=== PATIENT | female | born 1985 | race Caucasian/White ===

== ENCOUNTER 2019-08-22 14:04 | Emergency (ER) | payer SELFPAY ==
[2019-08-22 14:07] VITALS: BP 145/79; PULSE 79; RESP 18; TEMP 37; O2SAT 100
--- NOTE | 2019-08-22 14:19 | XR_ITS ---
WS: [id number] LEFT FOOT: 3 VIEW(S) TECHNIQUE: AP, oblique and lateral. HISTORY: injury COMPARISON: None available. No acute fracture or dislocation. Normal tarsal/metatarsal alignment. No soft tissue abnormality or bone destruction. XR/XR foot LT min 3V* [id number] IMPRESSION: Normal LEFT foot.
--- NOTE | 2019-08-22 14:19 | XR_ITS ---
WS: [id number] LEFT ANKLE: 3 VIEW(S) TECHNIQUE: AP, oblique(s) and lateral. HISTORY: injury COMPARISON: None available. Normal anatomic alignment with no fracture or dislocation. No joint effusion or widening of the ankle mortise. No significant degenerative changes at the joint spaces. Moderate soft tissue edema laterally. XR/XR ankle LT min 3V* [id number] IMPRESSION: Moderate soft tissue edema over the lateral ankle.
--- NOTE | 2019-08-22 14:21 | W.ED.LOWEXIN ---
HPI - Extremity Injury (Lower) General: Chief Complaint: Extremity Injury, Lower Stated Complaint: left ankle pain/injury Time Seen by Provider: 08/22/19 14:08 Source: patient Mode of arrival: ambulatory Limitations: no limitations History of Present Illness: HPI Narrative: Patient is a nice 33-year-old female who presents to ED today for evaluation of a left foot/ankle injury. Patient states she was going down a flight of stairs when she stepped on a stair wrong and inverted her foot. She has not been able to ambulate on the extremity since due to discomfort. MD complaint: ankle injury and foot injury Onset (ago): hour(s) Injury: Left: ankle and foot Type of Injury: inversion Place: home Severity: moderate Relieving factors: immobilization Exacerbating factors: weight bearing, movement and palpation Context: other (twisting) Associated symptoms: Reports inability to bear weight Other symptoms: none Review of Systems Musc: Reports: joint pain and joint swelling PFSH ED PFSH: Social History Smoking and tobacco status: current every day smoker Physical Exam Extremity: OTHER: tenderness and swelling over L lateral mallelous; tenderness throughout L lateral foot; NV intact Neuro: COMMON NORMALS: no sensory deficits noted Skin: COMMON NORMALS: no rashes or lesions noted GENERAL SKIN EXAM: no rashes or lesions noted Course Vital Signs: Vital signs: Vital Signs Temperature 98.6 F 08/22/19 14:07 Pulse Rate 79 08/22/19 14:07 Respiratory Rate 18 08/22/19 14:07 Blood Pressure 145/79 08/22/19 14:07 Pulse Oximetry 100 08/22/19 14:07 MDM - Extremity Injury (Lower) Imaging Data^: L ankle XR: Radiologist's impression: [address] [address] XRay Report Signed Patient: Patricia Winchester Unit #: [id number] : 1985 Age/Sex: 33 / F ADM Date: 08/22/19 Loc: ER Room/Bed: Attending Dr: Ordering Provider/Ordering MD: Shirley Haskins Date of Service: 08/22/19 Procedure(s): XR ankle LT min 3V* 29630 Accession Number(s): [id number] Report Number: [id number] WS: [id number] LEFT ANKLE: 3 VIEW(S) TECHNIQUE: AP, oblique(s) and lateral. HISTORY: injury COMPARISON: None available. Normal anatomic alignment with no fracture or dislocation. No joint effusion or widening of the ankle mortise. No significant degenerative changes at the joint spaces. Moderate soft tissue edema laterally. XR/XR ankle LT min 3V* [id number] IMPRESSION: Moderate soft tissue edema over the lateral ankle. Dictated By: Genevieve Huber DO Signed By: Genevieve Huber DO Signed Date/Time: 08/22/19 143 DD/ 1433 L foot XR: Radiologist's impression: [address] [address] XRay Report Signed Patient: Patricia Winchester Unit #: [id number] : 1985 Age/Sex: 33 / F ADM Date: 08/22/19 Loc: ER Room/Bed: Attending Dr: Ordering Provider/Ordering MD: Shirley Haskins Date of Service: 08/22/19 Procedure(s): XR foot LT min 3V* 32340 Accession Number(s): [id number] Report Number: [id number] WS: [id number] LEFT FOOT: 3 VIEW(S) TECHNIQUE: AP, oblique and lateral. HISTORY: injury COMPARISON: None available. No acute fracture or dislocation. Normal tarsal/metatarsal alignment. No soft tissue abnormality or bone destruction. XR/XR foot LT min 3V* [id number] IMPRESSION: Normal LEFT foot. Dictated By: Genevieve Huber DO Signed By: Genevieve Huber DO Signed Date/Time: 08/22/19 1435 DD/ 1434 Discharge Plan Discharge Patient Disposition: Home, Self-Care Clinical Impression: Inversion sprain of left ankle Qualifiers: Encounter type: initial encounter Qualified Code(s): S93.402A - Sprain of unspecified ligament of left ankle, initial encounter Condition: Stable Discharge Orders: Discharge Order (Routine); Ordered 08/22/19 Ordered By: Shirley Haskins Referrals: Henry Mon MD [Primary Care Provider] - Patient Instructions: Ankle Sprain (ED), RICE Therapy (ED) Activity Restrictions/Additional Instructions: Follow up with primary care in 1-2 weeks for continued pain. Coding Level of Care Code ED Private Investigator Surveillance for Joanne Corcoran
[2019-08-22 15:22] VITALS: BP 132/88; PULSE 77; RESP 16; O2SAT 100
== END 2019-08-22 15:24 | disposition home or self-care (01) ==
LOC: ER 16:08
PROVIDERS: Emergency Provider Physician Assistant; Family Provider Family Medicine; PCP Family Medicine
DX: S93.492A Sprain of other ligament of left ankle, initial encounter (principal); X50.1XXA Overexertion from prolonged static or awkward postures, initial encounter; F17.210 Nicotine dependence, cigarettes, uncomplicated
CPT/HCPCS: 12345; 73610; 73630; 99282; 99283; E0114

== ENCOUNTER 2020-11-21 07:29 | Emergency (ER) | payer OTHER, SELFPAY ==
--- NOTE | 2020-11-21 07:41 | XR_ITS ---
WS: [id number] Portable AP upright chest, 11/21/2020 Clinical Data: dyspnea/cough Comparison: PA and lateral chest, 11/20/2013. Findings: No nodules, masses or effusions are seen. The heart is normal. The pulmonary vascularity is not increased. No pneumonia or pneumothorax is seen. XR/XR chest 1V portable [id number] Impression: Negative chest.
[2020-11-21 07:51] VITALS: BP 125/87; PULSE 90; RESP 17; TEMP 36.9; O2SAT 97; BMI 32.5
[2020-11-21 07:57] VITALS: BP 129/89; PULSE 84; RESP 17; O2SAT 99
--- NOTE | 2020-11-21 09:29 | W.ED.COVID ---
HPI - COVID General: Chief Complaint: Fever Stated Complaint: COVID SX: FEVER; H/A; WEAK; BODY ACHES; COUGH Time Seen by Provider: 11/21/20 07:30 Triage information: No fever, cough or shortness of breath. No known COVID + exposure last 14 days History of Present Illness: HPI Narrative: 34-year-old female presents emergency room cough fever short of breath diarrhea generalized body aches headache and sore throat for the last proximately 4 days. She has not previously been vaccinated or tested positive for Covid MD complaint: has COVID symptoms COVID 19 common symptoms: positive fever(s), chills, non-productive cough, dyspnea, fatigue, body aches, loss of sense of smell and/or taste, throat pain, nasal congestion, nausea and diarrhea COVID 19 other sytmptoms: negative chest pain or requiring oxygen Onset (ago): day(s) (4) Severity: mild Treatment prior to arrival: none COVID Results: No Data to Display Review of Systems Const: Reports: fever(s), chills, body aches and fatigue ENMT: Reports: throat pain and nasal congestion Card: Denies: chest pain, edema, dyspnea on exertion or orthopnea Resp: Reports: dyspnea and non-productive cough GI: Reports: nausea and diarrhea : Denies: flank pain, difficulty voiding, dysuria, urinary frequency or urinary urgency Skin/Breast: Denies: rash or pruritus PFSH ED PFSH: Social History Smoking and tobacco status: current every day smoker Physical Exam Const: COMMON NORMALS: no acute distress GENERAL APPEARANCE: cooperative and comfortable ORIENTATION/CONSCIOUSNESS: Yes awake, Yes oriented to person, Yes oriented to place and Yes oriented to time HENMT: COMMON NORMALS: normocephalic and atraumatic HEAD & SCALP: normocephalic and atraumatic Neck/C-Spine: COMMON NORMALS: no JVD Resp: COMMON NORMALS: normal respiratory effort, No retractions, No use of accessory muscles and clear to auscultation bilaterally AUSCULTATION: clear to auscultation bilaterally Cardio: COMMON NORMALS: no JVD, regular rate, regular rhythm and No murmurs present (Cardio) RATE: regular rate RHYTHM: regular rhythm GI: COMMON NORMALS: Soft to palpation and No hepatosplenomegaly present AUSCULTATION: Yes normoactive bowel sounds PALPATION: Yes Soft to palpation, No Tenderness to palpation present (GI), No Guarding due to palpation present (GI) and Yes No hepatosplenomegaly present Extremity: COMMON NORMALS: normal to inspection, capillary refill normal, no clubbing, cyanosis or edema, no calf tenderness and no pedal edema Neuro: SENSORIUM/ORIENTATION: Yes oriented to person, Yes oriented to place and Yes oriented to time Skin: COMMON NORMALS: no rashes or lesions noted GENERAL SKIN EXAM: no rashes or lesions noted Course Vital Signs: Vital signs: Vital Signs Temperature 98.5 F 11/21/20 07:51 Pulse Rate 84 11/21/20 07:57 Respiratory Rate 17 11/21/20 07:57 Blood Pressure 129/89 11/21/20 07:57 Pulse Oximetry 99 11/21/20 07:57 MDM - COVID MDM Narrative: Medical decision making narrative: Clinically highly suspicious for COVID-19. Patient sats are good her exam is normal she is managing well other than relatively mild symptoms at this point. Recommend she and her family self isolate until the results are back. Also recommend they monitor home O2 sats if worsens return COVID Results: No Data to Display Discharge Plan Discharge Patient Disposition: Home Clinical Impression: Clinical diagnosis of COVID-19 Condition: Stable Discharge Orders: Discharge ED (Routine); Ordered 11/21/20 Ordered By: Jose Valle Discharge Diet: Usual diet Discharge Activity: Resume usual activity Patient Instructions: Opioid Safety Activity Restrictions/Additional Instructions: Monitor home oxygen saturation. Recommend you and your family self quarantine until results have returned. Coding Level of Care Code ED Parking Enforcement Technician for Joanne Corcoran
[2020-11-21 10:50] VITALS: BP 119/80; PULSE 87; RESP 17; TEMP 37.1; O2SAT 100
[2020-11-22 15:07] LABS: Coronavirus Test Green County Detected
== END 2020-11-21 10:55 | disposition home or self-care (01) ==
PROVIDERS: Emergency Provider Family Medicine
DX: U07.1 COVID-19 (principal); F17.210 Nicotine dependence, cigarettes, uncomplicated
CPT/HCPCS: 71045; 87635; 99282